=== PATIENT | female | born 1970 | race Caucasian/White ===

== ENCOUNTER 2021-01-14 18:59 | Outpatient (CLI) | payer MEDICAID, SELFPAY ==
[2021-01-14 20:15] LABS: Basophils % 0.5 %; Eosinophils % 0.5 %; Hematocrit 40.8 % (37.0-47.0); Hemoglobin 13.8 g/dL (11.5-15.3); Lymphocytes # 2.7 10^3/uL (0.8-4.8); Lymphocytes % 35.7 %; Mean Corpuscular HGB Conc 33.8 g/dL (30.0-36.0); Mean Corpuscular Hemoglobin 33.7 pg (28.0-34.0); Mean Corpuscular Volume 99.8 fl (81-99); Mean Platelet Volume 9.3 fL (7.4-10.4); Monocytes # 1.1 10^3/uL (0.2-0.9); Monocytes % 14.1 %; Neutrophils # 3.67 10^3/uL (1.8-7.7); Neutrophils % 49.1 %; Nucleated Red Blood Cells % 0 %; Platelet Count 373 10^3/cmm (130-400); Red Blood Count 4.09 10^6/uL (4.1-5.3); Red Cell Distribution Width 13.7 % (12.1-15.1); White Blood Count 7.5 10^3/uL (4.0-10.0)
[2021-01-14 20:52] LABS: Anion Gap 16.2 (5-19); Blood Urea Nitrogen 35 mg/dL (6-20); Calcium 9.8 mg/dL (8.5-10.5); Carbon Dioxide 33 mmol/L (22-29); Chloride 91 mmol/L (98-107); Glomerular Filtration Rate 58.9 mL/min (90-130); Glucose 66 mg/dL (65-115); Osmolality Calculated 290 mOsm/kg (285-295); Potassium 3.2 mmol/L (3.5-5.1); Sodium 137 mmol/L (136-145)
[2021-01-14 21:47] LABS: Erythrocyte Sedimentation Rate 19 mm/hr (0-15)
[2021-01-18 15:27] LABS: Cyclic Citrullinated Peptide <16 UNITS
== END 2021-01-14 19:00 | disposition home or self-care (01) ==
PROVIDERS: Visit Provider Internal Medicine Cardiovascular Disease
DX: M13.80 Other specified arthritis, unspecified site (principal)
CPT/HCPCS: 80048; 85025; 85651

== ENCOUNTER 2021-02-18 18:57 | Outpatient (CLI) | payer MEDICAID, SELFPAY ==
[2021-02-18 19:53] LABS: Alanine Aminotransferase 17 U/L (0-33); Albumin Level 4.5 g/dL (3.5-5.2); Alkaline Phosphatase 53 IU/L (35-105); Aspartate Amino Transferase 23 U/L (0-32); Blood Urea Nitrogen 26 mg/dL (6-20); Calcium 10.2 mg/dL (8.5-10.5); Carbon Dioxide 34 mmol/L (22-29); Globulin 3.3 g/dL (1.3-4.6); Glomerular Filtration Rate 52.8 mL/min (90-130); Glucose 94 mg/dL (65-115); Total Bilirubin 0.3 mg/dL (0.15-1.2); Total Protein 7.8 g/dL (6.6-8.7)
[2021-02-18 20:01] LABS: Chloride 92 mmol/L (98-107)
[2021-02-18 20:08] LABS: Osmolality Calculated 293 mOsm/kg (285-295); Sodium 139 mmol/L (136-145)
== END 2021-02-18 18:58 | disposition home or self-care (01) ==
LOC: LAB 18:57
PROVIDERS: Visit Provider General Practice
DX: E86.0 Dehydration (principal)
CPT/HCPCS: 80053; 86431

== ENCOUNTER 2021-04-22 17:12 | Outpatient (CLI) | payer MEDICAID, SELFPAY ==
[2021-04-22 17:47] LABS: Alanine Aminotransferase 21 U/L (0-33); Albumin Level 4.9 g/dL (3.5-5.2); Alkaline Phosphatase 50 IU/L (35-105); Anion Gap 22.3 (5-19); Aspartate Amino Transferase 24 U/L (0-32); Blood Urea Nitrogen 27 mg/dL (6-20); Calcium 9.7 mg/dL (8.5-10.5); Carbon Dioxide 32 mmol/L (22-29); Chloride 87 mmol/L (98-107); Globulin 2.3 g/dL (1.3-4.6); Glomerular Filtration Rate 47.6 mL/min (90-130); Glucose 85 mg/dL (65-115); Osmolality Calculated 290 mOsm/kg (285-295); Potassium 3.3 mmol/L (3.5-5.1); Sodium 138 mmol/L (136-145); Total Bilirubin 0.4 mg/dL (0.15-1.2); Total Protein 7.2 g/dL (6.6-8.7)
== END 2021-04-22 17:13 | disposition home or self-care (01) ==
LOC: LAB 17:12
PROVIDERS: Visit Provider General Practice
DX: M06.9 Rheumatoid arthritis, unspecified (principal)
CPT/HCPCS: 80053

== ENCOUNTER → 2021-07-30 09:58 | Outpatient (BNVA) | payer MEDICAID, SELFPAY | PROVIDERS: Visit Provider Family Medicine | DX: M06.9 Rheumatoid arthritis, unspecified (principal); Z13.6 Encounter for screening for cardiovascular disorders; K29.70 Gastritis, unspecified, without bleeding | CPT/HCPCS: 80053; 80061; 85025; 85651; 86038; 86140; 86200; 86431 ==

== ENCOUNTER 2021-08-27 | Outpatient (CLI) | payer MEDICAID, SELFPAY | END 2021-08-27 23:00 | disposition home or self-care (01) | LOC: RAD 02-01 22:27 | PROVIDERS: PCP Family Medicine; Visit Provider Family Medicine | DX: Z01.419 Encounter for gynecological examination (general) (routine) without abnormal findings (principal) | CPT/HCPCS: 87624 ==

== ENCOUNTER → 2021-09-03 08:31 | Outpatient (BNVA) | payer MEDICAID, SELFPAY | PROVIDERS: Visit Provider Internal Medicine | DX: M05.9 Rheumatoid arthritis with rheumatoid factor, unspecified (principal); N18.31 Chronic kidney disease, stage 3a; Z11.59 Encounter for screening for other viral diseases; Z11.1 Encounter for screening for respiratory tuberculosis; Z79.899 Other long term (current) drug therapy; F17.210 Nicotine dependence, cigarettes, uncomplicated | CPT/HCPCS: 36415; 73120; 73620; 80053; 83735; 86160; 86162; 86235; 86255; 86376; 86480; 86704; 86803; 87340; 99203; 99204 ==

== ENCOUNTER → 2021-09-15 14:01 | Outpatient (BNVA) | payer MEDICAID, SELFPAY | PROVIDERS: Visit Provider Internal Medicine | DX: M06.9 Rheumatoid arthritis, unspecified (principal); M19.049 Primary osteoarthritis, unspecified hand; Z79.899 Other long term (current) drug therapy; N18.31 Chronic kidney disease, stage 3a; E87.6 Hypokalemia; F17.210 Nicotine dependence, cigarettes, uncomplicated | CPT/HCPCS: 99214 ==

== ENCOUNTER → 2021-09-24 13:10 | Outpatient (BNVA) | payer MEDICAID, SELFPAY | PROVIDERS: Visit Provider Family Medicine | DX: R60.0 Localized edema (principal); Z86.19 Personal history of other infectious and parasitic diseases | CPT/HCPCS: 87491; 87591; 87661 ==

== ENCOUNTER 2021-10-29 14:00 | Outpatient (CLI) | payer MEDICAID, SELFPAY ==
--- NOTE | 2021-10-29 14:06 | MM_ITS ---
WS: [id number] BILATERAL SCREENING DIGITAL BREAST TOMOSYNTHESIS MAMMOGRAM WITH CAD HISTORY: screening mammogram COMPARISON: None available. Bilateral CC and MLO views with tomosynthesis and synthetic mammography submitted. Computer aided det ection analyzed. Breast composition: The breasts are heterogeneously dense, which may obscure small masses. No suspici ous masses, microcalcifications or architectural distortion. MM/[place] [id number] IMPRESSION: BI-RADS: 1-Negative FOLLOW UP: 1 Year Follow-up
== END 2021-10-29 14:01 | disposition home or self-care (01) ==
LOC: RAD 14:02
PROVIDERS: Visit Provider Family Medicine
DX: Z12.31 Encounter for screening mammogram for malignant neoplasm of breast (principal)
CPT/HCPCS: 77063; 77067

== ENCOUNTER → 2021-12-15 14:23 | Outpatient (BNVA) | payer MEDICAID, SELFPAY | PROVIDERS: PCP Family Medicine; Visit Provider Internal Medicine | DX: M06.9 Rheumatoid arthritis, unspecified (principal); N18.31 Chronic kidney disease, stage 3a | CPT/HCPCS: 36415; 80053; 85025; 85651; 86140; 99213; 99214 ==

== ENCOUNTER → 2022-02-18 13:25 | Outpatient (BNVA) | payer MEDICAID, SELFPAY | PROVIDERS: PCP Family Medicine; Visit Provider Family Medicine | DX: E87.6 Hypokalemia (principal) | CPT/HCPCS: 80053 ==

== ENCOUNTER 2022-04-04 15:13 | Inpatient (IN) | payer MEDICAID, SELFPAY ==
[2022-04-04] VITALS (14 sets, daily range): BP systolic 106–134; BP diastolic 70–79; PULSE 66–91; RESP 13–17; TEMP 36.8–36.9; O2SAT 95–100; BMI 16.2
[2022-04-04 15:54] LABS: Basophils % 0.5 %; Eosinophils % 0.1 %; Hematocrit 39.3 % (37.0-47.0); Hemoglobin 13.3 g/dL (11.5-15.3); Lymphocytes % 22.9 %; Mean Corpuscular HGB Conc 33.8 g/dL (30.0-36.0); Mean Corpuscular Hemoglobin 33.3 pg (28.0-34.0); Mean Corpuscular Volume 98.5 fl (81-99); Mean Platelet Volume 9.8 fL (7.4-10.4); Monocytes # 0.9 10^3/uL (0.2-0.9); Monocytes % 10.1 %; Neutrophils # 5.79 10^3/uL (1.8-7.7); Neutrophils % 66.1 %; Nucleated Red Blood Cells % 0 %; Platelet Count 287 10^3/cmm (130-400); Red Blood Count 3.99 10^6/uL (4.1-5.3); Red Cell Distribution Width 11.9 % (12.1-15.1); White Blood Count 8.8 10^3/uL (4.0-10.0)
[2022-04-04 16:29] LABS: Alanine Aminotransferase 49 U/L (0-33); Albumin Level 4.4 g/dL (3.5-5.2); Alkaline Phosphatase 59 U/L (35-105); Anion Gap 17.7 (5-19); Aspartate Amino Transferase 54 U/L (0-32); Blood Urea Nitrogen 38 mg/dL (6-20); Calcium 10.9 mg/dL (8.5-10.5); Carbon Dioxide 40 mmol/L (22-29); Chloride 81 mmol/L (98-107); Globulin 3.2 g/dL (1.3-4.6); Glomerular Filtration Rate 39.6 mL/min (90-130); Glucose 131 mg/dL (65-115); Osmolality Calculated 293 mOsm/kg (285-295); Sodium 136 mmol/L (136-145); Thyroid Stimulating Hormone 0.57 uIU/mL (0.27-4.20); Total Bilirubin 0.4 mg/dL (0.15-1.2); Total Protein 7.6 g/dL (6.6-8.7)
[2022-04-04 16:32] LABS: Potassium 2.7 mmol/L (3.5-5.1)
--- NOTE | 2022-04-04 16:34 | ED_ITS ---
HPI - Seizure General: Chief Complaint: Seizure Stated Complaint: weakness, dizzy Time Seen by Provider: 04/04/22 16:34 History of Present Illness: HPI Narrative: Ms. Bermeo is a 52-year-old lady with history of CKD, tobaccoism, rheumatoid arthritis on chronic steroids and hydroxychloroquine presenting to the emergency department due to syncopal episode with possible seizure. No reported seizure history. She reports sitting down on a couch when she had a sudden abnormal feeling followed by syncope. She did wake up with urinary incontinence and feeling mildly confused. Currently feels back to baseline. Denies other significant changes or known precipitating events. Intensity symptoms when present was severe. Course is improved. No other specific changes in health, exacerbating, or alleviating factors identified. Onset (ago): minute(s) Description of Episode: loss of consciousness, bladder incontinence and post- event confusion Witnessed: Yes - by Bystander Trauma: No Seizure History: No Place: Home Possible Precipitating Event: none Associated symptoms: Reports no associated symptoms Review of Systems General: Reports: 10 or more systems reviewed and unremarkable except in HPI and below PFSH ED PFSH: Medical History Elevated troponin History of trichomonal vaginitis Hypokalemia Rheumatoid arthritis Seizure-like activity Stage 3a chronic kidney disease (CKD) Syncopal episodes Surgical History No pertinent past surgical history Family History Mother Cancer, Onset Age: 75 Grandmother Dementia Other CAD (coronary artery disease) Diabetes Hyperlipidemia Hypertension Rheumatoid arthritis Denies family history of Lupus Clotting disorder Psychiatric illness Chronic kidney disease (CKD) Suicide Anesthesia complication Bleeding disorder Family history of premature coronary artery disease Lung disease Stroke Social History Smoking and tobacco status: current every day smoker cigarettes Packs smoked per day: 0.5 Quit status (tobacco): considering quitting Alcohol intake: current Alcohol intake frequency: few times a week Alcohol type: beer and wine Lives independently: Yes Household members: none Marital status: Single History of recent travel: No Physical Exam Const: COMMON NORMALS: patient oriented x3 and alert GENERAL APPEARANCE: cooperative and well developed HENMT: COMMON NORMALS: normocephalic and atraumatic HEAD & SCALP: normocep halic and atraumatic THROAT: posterior oropharynx normal Eye: COMMON NORMALS: conjunctivae normal CONJUNCTIVA: Yes conjunctivae normal SCLERA: sclerae normal Neck/C-Spine: COMMON NORMALS: supple GENERAL: Yes trachea midline Resp: COMMON NORMALS: normal respiratory effort and clear to auscultation bilaterally EFFORT & INSPECTION: Yes able to speak in complete sentences AUSCULTATION: clear to auscultation bilaterally Cardio: COMMON NORMALS: regular rate and regular rhythm RATE: regular rate RHYTHM: regular rhythm GI: COMMON NORMALS: Soft to palpation PALPATION: Yes Soft to palpation and No Tenderness to palpation present (GI) Extremity: GENERAL: Yes normal exam except as noted and No edema Neuro: COMMON NORMALS: patient oriented x3, CN's II-XII intact bilaterally, moves all extremities, no focal motor deficits, no sensory deficits noted and gait normal SENSORIUM/ORIENTATION: Yes alert and No Orientation impaired Psych: COMMON NORMALS: mental status grossly normal and Normal thought process present THOUGHT PROCESS: Normal thought process present Course Vital Signs: Vital signs: Vital Signs Temperature 97.6 F 04/06/22 10:38 Pulse Rate 62 04/06/22 10:38 Respiratory Rate 16 04/06/22 10:38 Blood Pressure 113/73 04/06/22 10:38 Pulse Oximetry 99 04/06/22 10:38 Oxygen Delivery Me thod 04/06/22 08:00 MDM - Seizure MDM Narrative Medical decision making narrative: 52-year-old female presenting for weakness and seizure-like episode associated with position change with no history of seizure reported. Exam as above with no focal neurologic deficits appreciated. EKG shows sinus rhythm with nonspecific ST segment abnormalities. No STEMI. Hematologic panel with normal hemoglobin, white blood cell count, and platelet count. Metabolic panel with significant hypokalemia and some evidence of dehydration with elevated creatinine. Transaminitis of uncertain etiology. Intermediate range 2-hour troponin. No urinary tract infection. Chest x-ray with no lobar consolidation or pneumothorax. CT head negative for acute intracranial pathology. During ED course patient treated with potassium replenishment and IV fluids. The exact etiology of patient's symptoms is unclear, certainly electrolyte derangement may be contributing as well as dehydration though given intermediate range 2-hour troponin delta I believe that further inpatient testing to evaluate for other causes such as cardiogenic causes seems warranted. The results of ED evaluation were discussed with the patient including plan for admission due to requirement for level of care not available if discharged to prevent significant worsening/deterioration. Patient agreeable with plan. Discussed with hospitalist service who was agreeable to admit patient. Medical Records Attestation: I reviewed the patient's medical records. Lab Data Attestation: I reviewed the patient's lab results. 04/04/22 15:25 04/04/22 15:25 Labs: Radiology Impressions Chest X-Ray 04/04/22 17:41 IMPRESSION: No acute findings. Head CT 04/04/22 17:41 IMPRESSION: No acute intracranial abnormality. Laboratory Results WBC 5.7 10^3/uL (4.0-10.0) 04/05/22 04:20 RBC 3.22 10^6/uL (4.1-5.3) L 04/05/22 04:20 Hgb 10.8 g/dL (11.5-15.3) L 04/05/22 04:20 Hct 32.8 % (37.0-47.0) L 04/05/22 04:20 MCV 101.9 fl (81-99) H 04/05/22 04:20 MCH 33.5 pg (28.0-34.0) 04/05/22 04:20 MCHC 32.9 g/dL (30.0-36.0) 04/05/22 04:20 RDW 12.1 % (12.1-15.1) 04/05/22 04:20 Plt Count 225 10^3/cmm (130-400) 04/05/22 04:20 MPV 10.2 fL (7.4-10.4) 04/05/22 04:20 Neut % (Auto) 40.2 % 04/05/22 04:20 Lymph % (Auto) 44.5 % 04/05/22 04:20 [place] % (Auto) 13.7 % 04/05/22 04:20 Eos % (Auto) 0.9 % 04/05/22 04:20 Baso % (Auto) 0.5 % 04/05/22 04:20 Neut # (Auto) 2.29 10^3/uL (1.8-7.7) 04/05/22 04:20 Lymph # (Auto) 2.5 10^3/uL (0.8-4.8) 04/05/22 04:20 [place] # (Auto) 0.8 10^3/uL (0.2-0.9) 04/05/22 04:20 Eos # (Auto) 0.1 10^3/uL (0.0-0.8) 04/05/22 04:20 Baso # (Auto) 0.0 10^3/uL (0.0-0.1) 04/05/22 04:20 Nucleated RBC % (auto) 0 % 04/05/22 04:20 Nucleated RBCs # 0.0 /100WBC 04/05/22 04:20 Sodium 141 mmol/L (136-145) 04/05/22 04:20 Potassium 3.4 mmol/L (3.5-5.1) L 04/05/22 04:20 Chloride 98 mmol/L (98-107) 04/05/22 04:20 Carbon Dioxide 33 mmol/L (22-29) H 04/05/22 04:20 Anion Gap 13.4 (5-19) 04/05/22 04:20 BUN 33 mg/dL (6-20) H 04/05/22 04:20 Creatinine 1.4 mg/dL (0.5-0.9) H 04/05/22 04:20 GFR Calculation 39.6 mL/min (90-130) L 04/05/22 04:20 Glucose 92 mg/dL (65-115) 04/05/22 04:20 Calculated Osmolality 299 mOsm/kg (285-295) H 04/05/22 04:20 Calcium 9.1 mg/dL (8.5-10.5) 04/05/22 04:20 Magnesium 2.0 mg/dL (1.7-2.3) 04/05/22 04:20 Total Bilirubin 0.4 mg/dL (0.15-1.2) 04/04/22 15:25 AST 54 U/L (0-32) H 04/04/22 15:25 ALT 49 U/L (0-33) H 04/04/22 15:25 Alkaline Phosphatase 59 U/L (35-105) 04/04/22 15:25 Troponin T Baseline 24 ng/L (0-10) H 04/04/22 16:44 Troponin T 120 Minute 29.91 ng/L (0-10) H 04/04/22 19:08 Delta Troponin T 5.91 ABS# (0-10) 04/04/22 19:08 Troponin T Hi Sens 6Hr 30.86 ng/L (0-10) H 04/04/22 23:15 Troponin T Hi Sens 6Hr Delta 6.86 ng/L (0-12) 04/04/22 23:15 C-Reactive Protein 3.0 mg/L (0.0-4.9) 04/05/22 04:20 Total Protein 7.6 g/dL (6.6-8.7) 04/04/22 15:25 Albumin 4.4 g/dL (3.5-5.2) 04/04/22 15:25 Globulin 3.2 g/dL (1.3-4.6) 04/04/22 15:25 25-OH Vitamin D Total 97 ng/mL (30-100) 04/04/22 23:15 TSH 0.57 uIU/mL (0.27-4.20) 04/04/22 15:25 Prolactin 36.41 ng/mL (4.8-23.3) H 04/04/22 19:08 PTH Intact 39.7 pg/mL (15-65) 04/04/22 15:25 Calcium (PTH Intact) 11.0 mg/dL (8.5-10.5) H 04/04/22 15:25 Urine Color Yellow (Yellow) 04/04/22 19:05 Urine Appearance Clear (CLEAR) 04/04/22 19:05 Urine pH 8 (5-7) H 04/04/22 19:05 Ur Specific [place] 1.010 (1.005-1.030) 04/04/22 19:05 Urine Protein Neg (Negative) 04/04/22 19:05 Urine Glucose (UA) Norm (Normal) 04/04/22 19:05 Urine Ketones Negative (Negative) 04/04/22 19:05 Urine Blood Neg (Negative) 04/04/22 19:05 Urine Nitrate Negative (Negative) 04/04/22 19:05 Urine Bilirubin Neg (Negative) 04/04/22 19:05 Prot Sulfosalicylic Acd Negative (Negative) 04/04/22 19:05 Urine Urobilinogen Norm mg/dL (Negative) 04/04/22 19:05 Ur Leukocyte Esterase Negative (Negative) 04/04/22 19:05 Ur Random Sodium 86 mmol/L 04/04/22 19:05 Ur Random Potassium 60 mmol/L 04/04/22 19:05 Ur Random Chloride 15 mmol/L 04/04/22 19:05 Ur Random Calcium 4.8 mg/dL 04/04/22 19:05 Urine Opiates Screen Negative ng/mL (Negative) 04/04/22 19:05 Ur Barbiturates Screen Negative ng/mL (Negative) 04/04/22 19:05 Ur Phencyclidine Scrn Negative ng/mL (Negative) 04/04/22 19:05 Ur Amphetamines Screen Negative ng/mL (Negative) 04/04/22 19:05 U Benzodiazepines Scrn Positive ng/mL (Negative) H 04/04/22 19:05 Urine Cocaine Screen Negative ng/mL (Negative) 04/04/22 19:05 U Marijuana (THC) Screen Negative ng/mL (Negative) 04/04/22 19:05 Coronavirus 229E (PCR) Not detected (NOT DETECT) 04/04/22 17:29 SARS-CoV-2 (PCR) Not detected (NOT DETECT) 04/04/22 17:29 Discharge Plan Discharge Patient Disposition: Placed in Observation Admit Provider: Fareed Martin Clinical Impression: Syncopal episodes, Hypokalemia, Elevated troponin Coding Level of Care Code ED Drapery Inspector for Andrea Rosenberg
[2022-04-04] MEDS: potassium chloride ER 20 mEq Tablet 40 MEQ PO (16:44)
--- NOTE | 2022-04-04 16:50 | ECG_ITS ---
[facility] Test Date: 2022-04-04 Pat Name: Annalisa Bermeo Department: Room: Gender: Female Director Of Medical Staff Services: : 1970 Requested By: Henok Sierra Order Number: [id number] Abdelrahman MD: Betina Ingram M.D. Measurements Intervals [place] Rate: 72 P: 78 IN: 148 QRS: 30 QRSD: 82 T: 59 QT: 388 QTc: 425 Interpretive Statements SINUS RHYTHM POSSIBLE LEFT ATRIAL ENLARGEMENT [-0.1mV P-WAVE IN V1/V2] SEPTAL MYOCARDIAL INFARCTION , OF INDETERMINATE AGE [40+ ms Q WAVE IN V1/V2] No previous ECG available for comparison Electronically Signed On 04-04-2022 17:52:44 MILL MANAGER by Betina Ingram M.D. [id number]
--- NOTE | 2022-04-04 16:50 | PC.NURSE ---
pt reports she has been vomiting and having diarrhea for last 2 weeks. reports yesterday and today had an occurrence where her ears started ringing and then she woke up on the ground. reports loss of control of bladder during episode. respirations even and unlabored, answering questions appropriately. lung sounds clear bilat. bowel sounds present. skin pink/warm/dry,
[2022-04-04 17:06] LABS: Magnesium 2.1 mg/dL (1.7-2.3); Troponin(5th) Baseline 24 ng/L (0-10)
[2022-04-04] MEDS: lidocaine 1% 5 ML in potassium chloride premix 100 ML 25 ML IV (17:17)
[2022-04-04] MEDS: sodium chloride 0.9% 1,000 ML 500 ML IV (17:18)
--- NOTE | 2022-04-04 17:41 | CTR_ITS ---
PROCEDURE INFORMATION: Exam: CT Head Without Contrast Exam date and time: 04/04/2022 5:59 PM Age: 52 years old Clinical indication: Syncope and collapse; Additional info: Seizure/syncope TECHNIQUE: Imaging protocol: Computed tomography of the head without contrast. Radiation optimization: All CT scans at this facility use at least one of these dose optimization techniques: automated exposure control; mA and/or kV adjustment per patient size (includes targeted exams where dose is matched to clinical indication); or iterative reconstruction. COMPARISON: No relevant prior studies available. RADIATION DOSE METRICS: Total DLP (mGy-cm): 971.38 FINDINGS: Brain: Normal. No hemorrhage. Unremarkable white matter. No mass effect. Cerebral ventricles: No ventriculomegaly. Paranasal sinuses: Visualized sinuses are unremarkable. No fluid levels. Mastoid air cells: Visualized mastoid air cells are well aerated. Bones/joints: Unremarkable. No acute fracture. Soft tissues: Unremarkable. CT/CT head wo con* [id number] IMPRESSION: No acute intracranial abnormality.
--- NOTE | 2022-04-04 17:41 | XRR_ITS ---
PROCEDURE INFORMATION: Exam: XR Chest Exam date and time: 04/04/2022 6:47 PM Age: 52 years old Clinical indication: Other: Syncope; Additional info: Seizure/syncope TECHNIQUE: Imaging protocol: Radiologic exam of the chest. Views: 1 view. COMPARISON: No relevant prior studies available. FINDINGS: Lungs: Calcified granuloma in the right lung apex. The lungs are otherwise clear. Pleural spaces: Unremarkable. No pleural effusion. No pneumothorax. Heart/Mediastinum: Unremarkable. No cardiomegaly. Bones/joints: Unremarkable. XR/XR chest 1V portable [id number] IMPRESSION: No acute findings.
--- NOTE | 2022-04-04 18:34 | ECG_ITS ---
[facility] Test Date: 2022-04-04 Pat Name: Annalisa Bermeo Department: Room: Gender: Female Stone Mason: : 1970 Requested By: Henok Sierra Order Number: [id number] Abdelrahman MD: Betina Ingram M.D. Measurements Intervals [place] Rate: 66 P: 71 MO: 143 QRS: 24 QRSD: 89 T: 58 QT: 405 QTc: 426 Interpretive Statements SINUS RHYTHM NONSPECIFIC T-WAVE ABNORMALITY Compared to ECG 04/04/2022 16:50:37 T-wave abnormality now present Myocardial infarct finding no longer present Electronically Signed On 04-05-2022 0:15:30 HOME DELIVERY DRIVER by Betina Ingram M.D. [id number]
--- NOTE | 2022-04-04 19:03 | PC.NURSE ---
report given to LAKHWINDER Cody to assume care
[2022-04-04 19:28] LABS: Add Urine Microscopic? NO; Charge for UA Resulting for Rev
[2022-04-04 19:42] LABS: Urine Appearance Clear (CLEAR); Urine Color Yellow (Yellow); pH Urine 8 (5-7)
[2022-04-04 19:43] LABS: Bilirubin Urine Neg (Negative); Blood Urine Neg (Negative); Glucose Urine UA Norm (Normal); Ketones Urine Negative (Negative); Leukocyte Esterase Urine Negative (Negative); Nitrate Urine Negative (Negative); Protein Urine Neg (Negative); Sulfosalicylic Acid Urine Negative (Negative); Urobilinogen Urine Norm (Negative)
[2022-04-04 19:45] LABS: Adenovirus Not Detected (NOT DETECT); Chlamydia Pneumoniae Not Detected (NOT DETECT); Coronavirus 229E,HKU1,NL63,OC4 Not Detected (NOT DETECT); Human Metapneumovirus Not Detected (NOT DETECT); Human Rhinovirus/Enterovirus Not Detected (NOT DETECT); Influenza A Not Detected (NOT DETECT); Influenza A H1 Not Detected (NOT DETECT); Influenza A H1-2009 Not Detected (NOT DETECT); Influenza A H3 Not Detected (NOT DETECT); Influenza B Not Detected (NOT DETECT); Mycoplasma Pneumoniae Not Detected (NOT DETECT); Parainfluenza Virus Type 1 Not Detected (NOT DETECT); Parainfluenza Virus Type 2 Not Detected (NOT DETECT); Parainfluenza Virus Type 3 Not Detected (NOT DETECT); Parainfluenza Virus Type 4 Not Detected (NOT DETECT); Respiratory Syncytial Virus A Not Detected (NOT DETECT); Respiratory Syncytial Virus B Not Detected (NOT DETECT); SARS-COV-2 Not Detected (NOT DETECT)
[2022-04-04 19:45] LABS: Troponin 5 2HR 29.91 ng/L (0-10)
[2022-04-04 19:48] LABS: Troponin 5 2HR Delta 5.91 ABS# (0-10)
--- NOTE | 2022-04-04 20:02 | P.HP_ITS ---
Providers/Chief Complaint Primary Care Provider: Trupti Pierre DO Chief Complaint: weakness, dizzy History of Present Illness Annalisa Bermeo is a 52 year old female with history of rheumatoid arthritis, presented today with chief complaint of 2 seizure-like activities. Patient is stating that her first episode of seizure-like activity happened at 8:45 PM 04/03 when she was sitting on a couch watching [employer] movie when all of a sudden she started become dizzy, hunched over to her right side, her heart rate was high that she could feel, she noticed ringing sensation in her ear and she felt warm, she kept hearing [employer] songs during this episode, when she woke up she was confused, she also noticed that she soiled herself with urine on the couch. Same episode occurred on 04/04 around 2 PM and at this point she decided to come to the hospital for further evaluation. Patient is stating that when EMS examined her her right hand was clenched which improved spontaneously. She is endorsing history of diarrhea, she has been experiencing viral illness which has resolved to most part but diarrhea took almost a week to resolve, on top of that she takes Lasix for her chronic kidney disease related swelling. He has not noticed any fever except 1 episode at the initial stage of her viral illness. She does smoke on daily basis. Denies alcohol or marijuana. Endorses history of cardiomyopathy, her twin sister had ablation, she is not sure about indication but she is stating that she has family history of cardiomy opathy Father of similar disease In the ER her doctor troponin is 5 EKG is unremarkable I requested echo, CT head unremarkable I have requested prolactin, she has been replenished for potassium She is awake and alert nonfocal neuro exam Review of Systems Const: Denies: fever(s) Eyes: Reports: blurry vision; Denies: change in vision ENMT: Denies: throat pain Card: Reports: chest pain and edema Resp: Denies: dyspnea GI: Reports: diarrhea : Denies: flank pain Musc: Reports: back pain Skin/Breast: Denies: rash Neuro: Denies: headache(s) or weakness in extremities Psych: Reports: anxiety Endo: Denies: polyuria [place]/Lymph: Denies: easy bruising All/Imm: Denies: urticaria Medications/Allergies Home Medications Medication Instructions Recorded Confirmed Last Taken Type acetaminophen 650 mg 650 mg PO Q8H 07/30/21 04/04/22 04/04/22 History tablet,extended release (Tylenol Arthritis Pain) folic acid 400 mcg tablet 0.4 mg PO DAILY 09/03/21 04/04/22 04/04/22 History milk thistle 150 mg capsule 150 mg PO DAILY 09/03/21 04/04/22 04/04/22 History hydroxychloroquine 200 mg tablet 200 mg PO BID #60 tabs 01/18/22 04/04/22 04/04/22 Rx terbinafine HCl 250 mg tablet 250 mg PO DAILY 60 days #60 tabs 02/28/22 04/04/22 04/04/22 Rx carboxymethylcellulose sodium 0.5 2 drp ophthalmic (eye) BID PRN dry 03/21/22 04/04/22 Unknown Rx % eye drops (Refresh Tears) eye(s) #15 mL fluoxetine 40 mg capsule 40 mg PO DAILY #90 caps 03/21/22 04/04/22 04/04/22 Rx furosemide 20 mg tablet See Rx Instructions .Route 03/21/22 04/04/22 04/04/22 Rx .COMPLEX #60 tabs omeprazole 20 mg capsule,delayed 20 mg PO DAILY #30 caps 03/21/22 04/04/22 04/04/22 Rx release biotin 5,000 mcg sublingual tablet 5,000 mcg sublingual DAILY 04/04/22 04/04/22 04/04/22 History bisacodyl 5 mg tablet 5 mg PO DAILY PRN Constipation 04/04/22 04/04/22 Unknown History potassium chloride 10 mEq 10 meq PO DAILY 04/04/22 04/04/22 04/04/22 History tablet,extended release prednisone 5 mg tablet 5 mg PO DAILY PRN Inflammation 04/04/22 04/04/22 04/04/22 History Allergies Allergy/AdvReac Type Severity Reaction Status Date / Time No Known Allergies Allergy Verified 04/04/22 17:20 PFSH Acute PFSH: Medical History History of trichomonal vaginitis Rheumatoid arthritis Surgical History No pertinent past surgical history Family History Mother Cancer, Onset Age: 75 Grandmother Dementia Other CAD (coronary artery disease) Diabetes Hyperlipidemia Hypertension Rheumatoid arthritis Denies family history of Lupus Clotting disorder Psychiatric illness Chronic kidney disease (CKD) Suicide Anesthesia complication Bleeding disorder Family history of premature coronary artery disease Lung disease Stroke Social History Smoking and tobacco status: current every day smoker cigarettes Packs smoked per day: 0.5 Quit status (tobacco): considering quitting Alcohol intake: current Alcohol intake frequency: few times a week Alcohol type: beer and wine Lives independently: Yes Household members: none Marital status: Single History of recent travel: No Vitals/I&O/Wt Last Vital Signs Temp 98.3 F 04/04/22 15:40 Pulse 70 04/04/22 18:55 Resp 17 04/04/22 17:28 BP 118/70 04/04/22 19:00 Pulse Ox 100 04/04/22 18:55 O2 Del Method 04/04/22 17:28 Weight last 48 hrs Weight 47.174 kg Physical Exam Narrative: NIH 0 Patient is awake and alert Clinically looks dehydrated Patient has chronic facial asymmetry, left-sided facial droop Awake and alert Nonfocal neuro exam Currently on room air S1, S2 Abdomen soft No signs of edema Clinically looks dehydrated No audible stridor or wheezing Pleasant and cooperative during my evaluation Appears stated age Data 04/04/22 15:25 04/04/22 15:25 A&P Assessment and plan (1) Seizure-like activity: (2) Syncopal episodes: (3) Hypokalemia: (4) Elevated troponin: (5) Stage 3a chronic kidney disease (CKD): Plan Seizure like activity Patient is stating that she had 1 episode of seizure likely 20 years ago she has never taken any antiepileptics She has hypokalemia Right hand clenching could be related to panic attack, hyperventilation, her calcium is slightly high at 10.9 I am anticipating provement with IV fluid hydration check PTH and vitamin D CT head unremarkable NIH 0 Will request carotid Doppler and echo No significant delta troponin EKG unremarkable No active chest pain Depending on echo report further decision will be made whether she will need cardiac evaluation considering family history of cardiomyopathy Patient is full code I will keep her on cardiac diet COVID-negative Hypokalemia most likely is related to dehydration related to diarrhea potassium related check magnesium and phosphorus Hold Lasix Full code Cardiac DVT prophylaxis Heparin Acute on chronic kidney disease likely related dehydration improvement anticipated with IV fluid hydration Hold lisinopril Is an active smoker Requested drug screen Attestations Medical Necessity Statement*: Anticipating discharge within 48 hours Time Spent in Patient Care: 40 Coding Level of Care Code Acute Clarity Developer for Chg Fwd Diagnoses Seizure-like activity R56.9 Syncopal episodes R55 Hypokalemia E87.6 Elevated troponin R77.8 Stage 3a chronic kidney disease (CKD) N18.31
--- NOTE | 2022-04-04 20:13 | USCV_ITS ---
Annalisa Bermeo Age: 52 Gender: F : 1970 Exam Date: 04/04/2022 20:34 Ordering Phys: Fareed Martin MD Technologist: WENDY Exam Location: [facility] [place] Indication: Syncope BP: 118 / 70 HR: 68 Rhythm: Sinus Technical Quality: Adequate MEASUREMENTS (Male / Female) Normal Values 2D ECHO LV Diastolic Diameter PLAX 4.4 cm 4.2 - 5.9 / 3.9 - 5.3 cm LV Systolic Diameter PLAX 2.8 cm IVS Diastolic Thickness 0.6 cm 0.6 - 1.0 / 0.6 - 0.9 cm IVS Systolic Thickness 1.3 cm LVPW Diastolic Thickness 0.9 cm 0.6 - 1.0 / 0.6 - 0.9 cm LVPW Systolic Thickness 1.3 cm LVOT Diameter 2.0 cm LV Ejection Fraction 2D Teich 67.7 % LV Ejection Fraction MOD 2C 73.2 % LV Ejection Fraction 2C AL 73.5 % LA Diameter 2.8 cm LA Width 3.8 cm LA Height 3.9 cm RA Width 3.5 cm RA Height 3.6 cm Aorta at Sinotubular Diameter 2.7 cm IVC Diameter 1.4 cm M-MODE Aortic Annulus Diameter 2.5 cm LA Ao Ratio MM 1.0 MV E Point Septal Separation 0.3 cm DOPPLER AV Peak Velocity 108.0 cm/s LVOT Peak Velocity 89.0 cm/s AV Area Cont Eq vti 2.5 cm squared AV Area Cont Eq pk 2.5 cm squared MV Area PHT 5.0 cm squared Mitral E to A Ratio 1.2 MV E' Velocity 46.0 cm/s Mitral E to MV E' Ratio 7.3 Mitral E to LV E' Lateral Ratio 7.0 Mitral E to LV E' Septal Ratio 7.6 TV Peak E Velocity 50.0 cm/s PV Peak Velocity 74.0 cm/s RV Acceleration Time 0.2 s RV Ejection Time 0.4 s RV AcT/ET 0.4 FINDINGS Left Ventricle Normal left ventricular size, systolic function and wall thickness, with no regional wall motion abnormalities. Left ventricular ejection fraction is estimated at 65 %. Normal diastolic function. Right Ventricle Normal right ventricular size and systolic function. RVSP could not be calculated due to incomplete tricuspid regurgitation velocity profile. Right Atrium Normal right atrial size. Left Atrium Normal left atrial size. Mitral Valve Structurally normal mitral valve. No mitral valve stenosis. Trace mitral valve regurgitation. Aortic Valve Structurally normal trileaflet aortic valve. No aortic valve stenosis. No aortic valve regurgitation. Tricuspid Valve Structurally normal tricuspid valve. No tricuspid valve stenosis. Trace tricuspid valve regurgitation. Pulmonic Valve Pulmonic valve not well visualized. No pulmonary valve stenosis. No significant pulmonary valve regurgitation. Pericardium No pericardial effusion. Aorta Normal size aortic root and proximal ascending aorta. IVC Normal IVC dimension with >50% respiratory change of the inferior vena cava. CONCLUSIONS 1. Normal left ventricular size, systolic function and wall thickness, with no regional wall motion abnormalities. Left ventricular ejection fraction is estimated at 65 %. Normal diastolic function. 2. Normal right ventricular size and systolic function. 3. No prior similar studies to compare. Cindy High MD (Electronically Signed) Final Date: 05 April 2022 13:09 S
[2022-04-04 21:25] LABS: Amphetamines Screen Urine Negative (Negative); Barbiturates Screen Urine Negative (Negative); Benzodiazepines Screen Urine Positive (Negative); Cocaine Screen Urine Negative (Negative); Opiate Screen Urine Negative (Negative); PCP Screen Urine Negative (Negative); THC Screen Urine Negative (Negative)
[2022-04-04 21:32] LABS: Prolactin 36.41 ng/mL (4.8-23.3)
[2022-04-04 21:51] LABS: Calcium Urine Random 4.8 mg/dL
[2022-04-04 21:53] LABS: Potassium, Radom Urine 60 mmol/L; Urine Random Sodium 86 mmol/L
[2022-04-04 21:58] LABS: Urine Random Chloride 15 mmol/L
--- NOTE | 2022-04-04 23:03 | ECG_ITS ---
[facility] Test Date: 2022-04-04 Pat Name: Annalisa Bermeo Department: Room: 256 Gender: Female Survey Supervisor: : 1970 Requested By: Henok Sierra Order Number: [id number] Abdelrahman MD: Cindy High M.D. Measurements Intervals Bono Rate: 77 P: 75 PA: 140 QRS: 43 QRSD: 86 T: 60 QT: 405 QTc: 460 Interpretive Statements SINUS RHYTHM NONSPECIFIC T-WAVE ABNORMALITY Compared to ECG 04/04/2022 18:18:26 No significant changes Electronically Signed On 04-05-2022 18:14:04 FINANCIAL SERVICE REPRESENTATIVE by Cindy High M.D. [id number]
[2022-04-04] MEDS: hydroxychloroquine 200 mg Tablet PO (23:06)
[2022-04-04] MEDS: sodium chlor 0.9% + KCl 40 mEq 40 MEQ/1,000 ML BAG 75 MEQ IV (23:06)
[2022-04-04] MEDS: lidocaine 1% 5 ML in potassium chloride premix 100 ML 50 ML IV (23:06)
[2022-04-04] MEDS: heparin 5,000 unit/mL INJ 1 mL 5000 UNIT SUBCUT (23:08)
[2022-04-04 23:45] LABS: Troponin 5 6HR 30.86 ng/L (0-10)
[2022-04-04 23:48] LABS: Troponin 5 6HR Delta 6.86 ng/L (0-12)
[2022-04-05] VITALS (8 sets, daily range): BP systolic 94–118; BP diastolic 51–78; PULSE 57–104; RESP 16–20; TEMP 36.4–36.8; O2SAT 93–98
[2022-04-05 00:22] LABS: Parathyroid Hormone 39.7 pg/mL (15-65)
[2022-04-05 00:30] LABS: 25 Hydroxy Vitamin D 97 ng/mL (30-100)
[2022-04-05 05:37] LABS: Basophils % 0.5 %; Eosinophils # 0.1 10^3/uL (0.0-0.8); Eosinophils % 0.9 %; Hematocrit 32.8 % (37.0-47.0); Hemoglobin 10.8 g/dL (11.5-15.3); Lymphocytes # 2.5 10^3/uL (0.8-4.8); Lymphocytes % 44.5 %; Mean Corpuscular HGB Conc 32.9 g/dL (30.0-36.0); Mean Corpuscular Hemoglobin 33.5 pg (28.0-34.0); Mean Corpuscular Volume 101.9 fl (81-99); Mean Platelet Volume 10.2 fL (7.4-10.4); Monocytes # 0.8 10^3/uL (0.2-0.9); Monocytes % 13.7 %; Neutrophils # 2.29 10^3/uL (1.8-7.7); Neutrophils % 40.2 %; Nucleated Red Blood Cells % 0 %; Platelet Count 225 10^3/cmm (130-400); Red Blood Count 3.22 10^6/uL (4.1-5.3); Red Cell Distribution Width 12.1 % (12.1-15.1); White Blood Count 5.7 10^3/uL (4.0-10.0)
[2022-04-05 06:17] LABS: Anion Gap 13.4 (5-19); Blood Urea Nitrogen 33 mg/dL (6-20); Calcium 9.1 mg/dL (8.5-10.5); Carbon Dioxide 33 mmol/L (22-29); Chloride 98 mmol/L (98-107); Glomerular Filtration Rate 39.6 mL/min (90-130); Glucose 92 mg/dL (65-115); Osmolality Calculated 299 mOsm/kg (285-295); Potassium 3.4 mmol/L (3.5-5.1); Sodium 141 mmol/L (136-145)
[2022-04-05] MEDS: potassium chloride ER 20 mEq Tablet 40 MEQ PO (08:30)
[2022-04-05] MEDS: heparin 5,000 unit/mL INJ 1 mL 5000 UNIT SUBCUT ×2 (08:30→20:46)
[2022-04-05] MEDS: pantoprazole DR 40 mg Tablet PO (08:30)
[2022-04-05] MEDS: hydroxychloroquine 200 mg Tablet PO ×2 (08:30→16:58)
[2022-04-05] MEDS: predniSONE 10 mg Tablet PO (10:39)
--- NOTE | 2022-04-05 12:59 | PM.PN ---
Subjective Subjective: Patient was seen and examined this morning, had no seizure-like activity since being in the hospital. Will at least monitor her for 24 hours to make sure she has no documented seizure. Medications: Medication Review Details: Generic Name Dose Route Start Last Admin Trade Name Segun PRN Reason Stop Dose Admin Heparin Sodium (Po rcine) 5,000 unit 04/04/22 21:31 04/05/22 08:30 Heparin 5,000 Un it/Ml Inj 1 Ml SUBCUT 5,000 unit Q12H SKYLER Administration Hydroxychloroquine Sulfate 200 mg 04/04/22 22:12 04/05/22 08:30 Hydroxychloroqui ne 200 Mg Tablet PO 200 mg BID SKYLER Administration Potassium Chloride /Sodium Chloride 40 meq in 1,000 m ls @ 75 mls/hr 04/04/22 21:31 04/04/22 23:06 Sodium Chlor 0.9 % + Kcl 40 Meq IV 75 mls/hr .[id number] SKYLER Administration Pantoprazole Sodiu m 40 mg 04/05/22 09:00 04/05/22 08:[address] 40 Mg Tablet PO 40 mg DAILY SKYLER Administration Potassium Chloride 40 meq 04/05/22 09:00 04/05/22 08:30 Potassium Chlori de Er 20 Meq Table t PO 40 meq DAILY SKYLER Administration Prednisone 10 mg 04/05/22 09:40 04/05/22 10:39 Prednisone 10 Mg Tablet PO 10 mg DAILY SKYLER Administration Vitals/I&O/Wt Last Vital Signs Temp 98.2 F 04/05/22 12:00 Pulse 65 04/05/22 12:00 Resp 17 04/05/22 12:00 BP 116/73 04/05/22 12:00 Pulse Ox 98 04/05/22 12:00 O2 Del Method 04/05/22 10:17 04/04/22 04/05/22 04/05/22 22:59 06:59 14:59 Intake Total 1345 / 1345 345 / 1690 150 / 150 Output Total 200 / 200 Balance 1345 / 1345 145 / 1490 150 / 150 Weight last 48 hrs Weight 49.952 kg Weight 47.174 kg Physical Exam Resp: COMMON NORMALS: clear to auscultation bilaterally AUSCULTATION: clear to auscultation bilaterally Cardio: COMMON NORMALS: regular rate, regular rhythm, S1 normal heart sound present, S2 normal heart sound present, No gallops present (Cardio), No murmurs present (Cardio), No rub (Cardio) and Peripheral pulses 2+ throughout RATE: regular rate RHYTHM: regular rhythm HEART SOUNDS: S1 normal heart sound present and S2 normal heart sound present PERIPHERAL PULSES: Peripheral pulses 2+ throughout GI: COMMON NORMALS: Normal to inspection, nondistended, normoactive bowel sounds present, Soft to palpation, non-tender, No hepatosplenomegaly present and no masses AUSCULTATION: Yes normoactive bowel sounds PALPATION: Yes Soft to palpation and Yes No hepatosplenomegaly present RECTAL EXAM: deferred Extremity: COMMON NORMALS: no clubbing, cyanosis or edema and no pedal edema Data 04/05/22 04:20 04/05/22 04:20 A&P Assessment and plan (1) Seizure-like activity: (2) Syncopal episodes: (3) Hypokalemia: (4) Elevated troponin: (5) Stage 3a chronic kidney disease (CKD): Plan 52-year-old female with past medical history of rheumatoid arthritis, was brought in with chief complaint of 2 episodes of what she possibly describes as seizure-like activity, during which she also experienced involuntary urination , ringing sensation in the ears, and also describes as possible postictal confusion. She has a very remote history of 1 seizure episode about 20 years back, has not been on antiepileptic medications. Assessment: Possible seizure versus pseudoseizure History of rheumatoid arthritis Hypokalemia Likely CKD stage III: Hypercalcemia possibly secondary to volume depletion improving with IV hydration Plan: CT head without contrast no acute intracranial pathology 2D echo: Was done for family history of cardiomyopathy: Normal LV size and systolic function, LVEF 65% No gross valvular abnormality present. Carotid Doppler elevated X-ray chest: No acute findings COVID PCR negative Prolactin: 36 (though elevated but not very reliable) Intact PTH:39 25-OH vitamin D: 97 TSH : 0.57 Continue IV hydration Monitor intake output charting, avoid nephrotoxic Troponin trend: Unremarkable EKG unremarkable For now Lasix and his lisinopril has been kept on hold Monitor and replace potassium Patient will possibly need neurology follow-up as an outpatient.If needed EEG as outpatient. Continue prednisone and HCQ for h/o R/A CODE STATUS: Full code DVT prophylaxis: On heparin Attestations Medical Necessity Statement*: Patient is still in hospital for monitoring of seizure. Coding Level of Care Code Acute Advertising Sales Executive for Chg Fwd Exam Expanded Problem Focused Diagnoses Seizure-like activity R56.9 Syncopal episodes R55 Hypokalemia E87.6 Elevated troponin R77.8 Stage 3a chronic kidney disease (CKD) N18.31
--- NOTE | 2022-04-05 13:16 | PC.CHAP ---
Pastoral Care Encounter/Spiritual Assessment Type of Contact [] Declined building cleaner visit [] Patient/Family/Request visit [] Outpatient visit [] Follow-up visit [] Physician referral [] Code/Alert [x] Routine visit [] Staff referral [] Actively dying [] Patient sleeping [] Family support [] [] Out of room [] Palliative care [] [] Receiving care in room [] Pre-surgical visit [] Trauma [] Long length of stay [] ICU visit [] Other: Relational/Emotional Strength [x] Patient feels connected with others/family/visitors/staff [x] Distress [] Loneliness/isolation [] Abandonment Spirituality of Patient [x] Person of Alice [] Attends Church of their [place] [x] Believes in Prayer [] Reads Bible or Holiness materials [] There are Spiritual issues to be addressed Automatic Brine Mixer Operator Interventions [x] Prayer [x] Active listening [x] Non-anxious presence []x Spiritual/emotional support [] Crisis/trauma care [] Spiritual counseling [] Bereavement support [] Provided bereavement packet []x Provided Bible/devotional materials [] Provided toy/stuffed animal, coloring book to patient or family member [] Provided Communion [] Anointing/[place] [] Salvation [x Completed spiritual assessment [] Other: Impact on Illness or Injury [] Angry [] Fearful [] Anxious [] Often cries [] Exhaustion [] Unable to work [] Unable to attend religious [] Unable to walk/stand [] Unable to read [] Unable to drive [] Unable to eat/drink [] Unable to sleep [] Unable to be with family [] Patient intubated [] Other: Summary Time spent with patient 10 min
[2022-04-05] MEDS: sodium chlor 0.9% + KCl 40 mEq 40 MEQ/1,000 ML BAG 75 MEQ IV (14:36)
[2022-04-06] VITALS: BP 129/63; PULSE 60; RESP 17; TEMP 37.2; O2SAT 95
[2022-04-06 04:00] VITALS: BP 118/73; PULSE 57; RESP 20; TEMP 37; O2SAT 98
[2022-04-06] MEDS: sodium chlor 0.9% + KCl 40 mEq 40 MEQ/1,000 ML BAG 75 MEQ IV (05:14)
[2022-04-06 05:33] LABS: Basophils % 0.4 %; Eosinophils # 0.2 10^3/uL (0.0-0.8); Eosinophils % 2.9 %; Hematocrit 31.4 % (37.0-47.0); Hemoglobin 9.9 g/dL (11.5-15.3); Lymphocytes # 2.5 10^3/uL (0.8-4.8); Lymphocytes % 47.1 %; Mean Corpuscular HGB Conc 31.5 g/dL (30.0-36.0); Mean Corpuscular Hemoglobin 33.4 pg (28.0-34.0); Mean Corpuscular Volume 106.1 fl (81-99); Mean Platelet Volume 10.2 fL (7.4-10.4); Monocytes # 0.6 10^3/uL (0.2-0.9); Monocytes % 10.9 %; Neutrophils # 2.02 10^3/uL (1.8-7.7); Neutrophils % 38.5 %; Nucleated Red Blood Cells % 0 %; Platelet Count 201 10^3/cmm (130-400); Red Blood Count 2.96 10^6/uL (4.1-5.3); Red Cell Distribution Width 12.1 % (12.1-15.1); White Blood Count 5.2 10^3/uL (4.0-10.0)
[2022-04-06 05:52] LABS: Alanine Aminotransferase 22 U/L (0-33); Albumin Level 3.4 g/dL (3.5-5.2); Alkaline Phosphatase 49 U/L (35-105); Anion Gap 9.4 (5-19); Aspartate Amino Transferase 17 U/L (0-32); Blood Urea Nitrogen 22 mg/dL (6-20); Carbon Dioxide 26 mmol/L (22-29); Chloride 109 mmol/L (98-107); Globulin 2.1 g/dL (1.3-4.6); Glomerular Filtration Rate 52.4 mL/min (90-130); Glucose 92 mg/dL (65-115); Osmolality Calculated 293 mOsm/kg (285-295); Phosphorus 1.4 mg/dL (2.5-4.5); Potassium 4.4 mmol/L (3.5-5.1); Sodium 140 mmol/L (136-145); Total Bilirubin 0.2 mg/dL (0.15-1.2); Total Protein 5.5 g/dL (6.6-8.7)
[2022-04-06 08:00] VITALS: BP 113/73; PULSE 62; RESP 16; TEMP 36.4; O2SAT 98; O2SAT 99
[2022-04-06] MEDS: pantoprazole DR 40 mg Tablet PO (08:23)
[2022-04-06] MEDS: predniSONE 10 mg Tablet PO (08:23)
[2022-04-06] MEDS: potassium chloride ER 20 mEq Tablet 40 MEQ PO (08:23)
[2022-04-06] MEDS: hydroxychloroquine 200 mg Tablet PO (08:24)
[2022-04-06] MEDS: heparin 5,000 unit/mL INJ 1 mL 5000 UNIT SUBCUT (08:26)
[2022-04-06 10:38] VITALS: BP 113/73; PULSE 62; RESP 16; TEMP 36.4; O2SAT 99
--- NOTE | 2022-04-06 10:43 | PM.DCS ---
Discharge Providers Date of Admission: 04/05/22 17:53 Date of Discharge: April 06, 2022 Attending Provider at Admission: Fareed Martin MD Attending Provider at Discharge: Cole Peraza MD Primary Care Provider: Trupti Pierre DO Diagnoses at Discharge Discharge Diagnosis (1) Seizure-like activity: Status: Acute (2) Syncopal episodes: Status: Acute (3) Hypokalemia: Status: Acute (4) Elevated troponin: Status: Acute (5) Stage 3a chronic kidney disease (CKD): Status: Acute Reason for Visit Reason for Visit: weakness, dizzy Hospital Course Hospital Course 52-year-old female with past medical history of rheumatoid arthritis, was brought in with chief complaint of 2 episodes of what she possibly describes as seizure-like activity, she was admitted for monitoring of possible seizure versus pseudoseizure, she was found to be hypokalemic on admission, electrolyte abnormalities were corrected, she was kept on IV hydration, for possible possible CKD versus JERICHO on CKD, CT head without contrast failed to show any acute intracranial pathology, 2D echo Was done for family history of cardiomyopathy: Normal LV size and systolic function, LVEF 65%, No gross valvular abnormality present.X-ray chest: No acute findings COVID PCR negative,Prolactin: 36 (though elevated but not very reliable), Intact PTH:39, 25-OH vitamin D: 97 TSH : 0.57. Likely explanation for her unusual presentation could be hypokalemia triggered, with possible some element of dehydration, no seizure-like episode was experienced during hospital stay, patient has not been started on any antiepileptic medication, Lasix has been kept on hold on discharge, serum phosphorus was also found to be low: For which she has been started on oral phosphorus tablet, hypercalcemia on admission had resolved with IV hydration. Patient will follow with primary care physician in 1 week. In view of any repeat reoccurrence of any such similar episode, she will have to see her neurologist as outpatient for possible EEG and further work-up. Overall patient responded well to above medical management, she is being discharged home in stable condition Physical Exam Resp: COMMON NORMALS: clear to auscultation bilaterally AUSCULTATION: clear to auscultation bilaterally Cardio: COMMON NORMALS: regular rate, regular rhythm, S1 normal heart sound present, S2 normal heart sound present, No gallops present (Cardio), No murmurs present (Cardio), No rub (Cardio) and Peripheral pulses 2+ throughout RATE: regular rate RHYTHM: regular rhythm HEART SOUNDS: S1 normal heart sound present and S2 normal heart sound present PERIPHERAL PULSES: Peripheral pulses 2+ throughout GI: COMMON NORMALS: Normal to inspection, nondistended, normoactive bowel sounds present, Soft to palpation, non-tender, No hepatosplenomegaly present and no masses AUSCULTATION: Yes normoactive bowel sounds PALPATION: Yes Soft to palpation and Yes No hepatosplenomegaly present RECTAL EXAM: deferred Extremity: COMMON NORMALS: no clubbing, cyanosis or edema and no pedal edema Discharge Data Studies Completed and Pending Completed Studies During Hospitalization Category Date Time Status CT head wo con* [id number] Stat Cat Scan 04/04/22 17:41 Completed XR chest 1V portable [id number] Stat Exams 04/04/22 17:41 Completed CV. echo complete* [id number] Stat Ultrasound 04/04/22 20:13 Completed Radiology Impressions Chest X-Ray 04/04/22 17:41 IMPRESSION: No acute findings. Head CT 04/04/22 17:41 IMPRESSION: No acute intracranial abnormality. Laboratory Results WBC 5.2 10^3/uL (4.0-10.0) 04/06/22 05:00 RBC 2.96 10^6/uL (4.1-5.3) L 04/06/22 05:00 Hgb 9.9 g/dL (11.5-15.3) L 04/06/22 05:00 Hct 31.4 % (37.0-47.0) L 04/06/22 05:00 MCV 106.1 fl (81-99) H 04/06/22 05:00 MCH 33.4 pg (28.0-34.0) 04/06/22 05:00 MCHC 31.5 g/dL (30.0-36.0) 04/06/22 05:00 RDW 12.1 % (12.1-15.1) 04/06/22 05:00 Plt Count 201 10^3/cmm (130-400) 04/06/22 05:00 MPV 10.2 fL (7.4-10.4) 04/06/22 05:00 Neut % (Auto) 38.5 % 04/06/22 05:00 Lymph % (Auto) 47.1 % 04/06/22 05:00 [place] % (Auto) 10.9 % 04/06/22 05:00 Eos % (Auto) 2.9 % 04/06/22 05:00 Baso % (Auto) 0.4 % 04/06/22 05:00 Neut # (Auto) 2.02 10^3/uL (1.8-7.7) 04/06/22 05:00 Lymph # (Auto) 2.5 10^3/uL (0.8-4.8) 04/06/22 05:00 [place] # (Auto) 0.6 10^3/uL (0.2-0.9) 04/06/22 05:00 Eos # (Auto) 0.2 10^3/uL (0.0-0.8) 04/06/22 05:00 Baso # (Auto) 0.0 10^3/uL (0.0-0.1) 04/06/22 05:00 Nucleated RBC % (auto) 0 % 04/06/22 05:00 Nucleated RBCs # 0.0 /100WBC 04/06/22 05:00 Sodium 140 mmol/L (136-145) 04/06/22 05:00 Potassium 4.4 mmol/L (3.5-5.1) 04/06/22 05:00 Chloride 109 mmol/L (98-107) H 04/06/22 05:00 Carbon Dioxide 26 mmol/L (22-29) 04/06/22 05:00 Anion Gap 9.4 (5-19) 04/06/22 05:00 BUN 22 mg/dL (6-20) H 04/06/22 05:00 Creatinine 1.1 mg/dL (0.5-0.9) H 04/06/22 05:00 GFR Calculation 52.4 mL/min (90-130) L 04/06/22 05:00 Glucose 92 mg/dL (65-115) 04/06/22 05:00 Calculated Osmolality 293 mOsm/kg (285-295) 04/06/22 05:00 Calcium 9.0 mg/dL (8.5-10.5) 04/06/22 05:00 Phosphorus 1.4 mg/dL (2.5-4.5) L 04/06/22 05:00 Magnesium 2.0 mg/dL (1.7-2.3) 04/05/22 04:20 Total Bilirubin 0.2 mg/dL (0.15-1.2) 04/06/22 05:00 AST 17 U/L (0-32) 04/06/22 05:00 ALT 22 U/L (0-33) 04/06/22 05:00 Alkaline Phosphatase 49 U/L (35-105) 04/06/22 05:00 Troponin T Baseline 24 ng/L (0-10) H 04/04/22 16:44 Troponin T 120 Minute 29.91 ng/L (0-10) H 04/04/22 19:08 Delta Troponin T 5.91 ABS# (0-10) 04/04/22 19:08 Troponin T Hi Sens 6Hr 30.86 ng/L (0-10) H 04/04/22 23:15 Troponin T Hi Sens 6Hr Delta 6.86 ng/L (0-12) 04/04/22 23:15 C-Reactive Protein 3.0 mg/L (0.0-4.9) 04/05/22 04:20 Total Protein 5.5 g/dL (6.6-8.7) L 04/06/22 05:00 Albumin 3.4 g/dL (3.5-5.2) L 04/06/22 05:00 Globulin 2.1 g/dL (1.3-4.6) 04/06/22 05:00 25-OH Vitamin D Total 97 ng/mL (30-100) 04/04/22 23:15 TSH 0.57 uIU/mL (0.27-4.20) 04/04/22 15:25 Prolactin 36.41 ng/mL (4.8-23.3) H 04/04/22 19:08 PTH Intact 39.7 pg/mL (15-65) 04/04/22 15:25 Calcium (PTH Intact) 11.0 mg/dL (8.5-10.5) H 04/04/22 15:25 Urine Color Yellow (Yellow) 04/04/22 19:05 Urine Appearance Clear (CLEAR) 04/04/22 19:05 Urine pH 8 (5-7) H 04/04/22 19:05 Ur Specific [place] 1.010 (1.005-1.030) 04/04/22 19:05 Urine Protein Neg (Negative) 04/04/22 19:05 Urine Glucose (UA) Norm (Normal) 04/04/22 19:05 Urine Ketones Negative (Negative) 04/04/22 19:05 Urine Blood Neg (Negative) 04/04/22 19:05 Urine Nitrate Negative (Negative) 04/04/22 19:05 Urine Bilirubin Neg (Negative) 04/04/22 19:05 Prot Sulfosalicylic Acd Negative (Negative) 04/04/22 19:05 Urine Urobilinogen Norm mg/dL (Negative) 04/04/22 19:05 Ur Leukocyte Esterase Negative (Negative) 04/04/22 19:05 Ur Random Sodium 86 mmol/L 04/04/22 19:05 Ur Random Potassium 60 mmol/L 04/04/22 19:05 Ur Random Chloride 15 mmol/L 04/04/22 19:05 Ur Random Calcium 4.8 mg/dL 04/04/22 19:05 Urine Opiates Screen Negative ng/mL (Negative) 04/04/22 19:05 Ur Barbiturates Screen Negative ng/mL (Negative) 04/04/22 19:05 Ur Phencyclidine Scrn Negative ng/mL (Negative) 04/04/22 19:05 Ur Amphetamines Screen Negative ng/mL (Negative) 04/04/22 19:05 U Benzodiazepines Scrn Positive ng/mL (Negative) H 04/04/22 19:05 Urine Cocaine Screen Negative ng/mL (Negative) 04/04/22 19:05 U Marijuana (THC) Screen Negative ng/mL (Negative) 04/04/22 19:05 Coronavirus 229E (PCR) Not detected (NOT DETECT) 04/04/22 17:29 SARS-CoV-2 (PCR) Not detected (NOT DETECT) 04/04/22 17:29 Vitals Last Vital Signs Temp 97.6 F 04/06/22 10:38 Pulse 62 04/06/22 10:38 Resp 16 04/06/22 10:38 BP 113/73 04/06/22 10:38 Pulse Ox 99 04/06/22 10:38 O2 Del Method 04/06/22 08:00 Discharge Plan Discharge Patient Disposition: Home Condition: Stable Prescriptions: New Phospha 250 Neutral 250 mg tablet 1 tab PO BID Qty: 20 0RF Continued acetaminophen [Tylenol Arthritis Pain] 650 mg tablet extended release 650 mg PO Q8H omeprazole 20 mg capsule,delayed release(DR/EC) 20 mg PO DAILY Qty: 30 3RF fluoxetine 40 mg capsule 40 mg PO DAILY Qty: 90 1RF milk thistle 150 mg capsule 150 mg PO DAILY Rx Instructions: give with meal/snack folic acid 400 mcg tablet 0.4 mg PO DAILY carboxymethylcellulose sodium [Refresh Tears] 0.5 % drops 2 drp ophthalmic (eye) BID PRN (Reason: dry eye(s)) Qty: 15 11RF Rx Instructions: Use in both eyes hydroxychloroquine 200 mg tablet 200 mg PO BID Qty: 60 3RF terbinafine HCl 250 mg tablet 250 mg PO DAILY 60 Days Qty: 60 0RF bisacodyl 5 mg Tablet 5 mg PO DAILY PRN (Reason: Constipation) biotin 5,000 mcg Tablet, Sublingual 5,000 mcg SUBLINGUAL DAILY prednisone 5 mg tablet 5 mg PO DAILY PRN (Reason: Inflammation) potassium chloride 10 mEq tablet extended release 10 meq PO DAILY Held furosemide 20 mg tablet See Rx Instructions .ROUTE .COMPLEX Qty: 60 1RF Hold Instructions: Resume on 04/16/22. Dose Instruction: TAKE 1 TO 2 TABLETS BY MOUTH EVERY MORNING Rx Instructions: TAKE 1 TO 2 TABLETS BY MOUTH EVERY MORNING Discharge Orders: Discharge Order (Routine); Ordered 04/06/22 Ordered By: Cole Peraza Referrals: Trupti Pierre DO [Primary Care Provider] - 04/11/22 2:45 pm Patient Instructions: Phosphate Supplement (By mouth), Hypokalemia (DC), Near Syncope (DC), High Troponin Levels (GEN), Opioid Safety Discharge Attestations Time Spent in Discharge Care*: less than 30 min Quality Metrics Clinical Quality Measures [ No reported AMI, CVA or VTE this stay] Coding Level of Care Code Acute Chg FW DC note Diagnoses Seizure-like activity R56.9 Syncopal episodes R55 Hypokalemia E87.6 Elevated troponin R77.8 Stage 3a chronic kidney disease (CKD) N18.31
== END 2022-04-06 11:10 | disposition home or self-care (01) | DRG 641 ==
LOC: ER 20:04 → MEDSURG 20:35
PROVIDERS: Admitting Provider Internal Medicine; Emergency Provider Emergency Medicine; PCP Family Medicine; Visit Provider Internal Medicine
DX: E87.6 Hypokalemia (principal); N17.9 Acute kidney failure, unspecified; I42.9 Cardiomyopathy, unspecified; M06.9 Rheumatoid arthritis, unspecified; F17.210 Nicotine dependence, cigarettes, uncomplicated; N18.31 Chronic kidney disease, stage 3a; F41.0 Panic disorder [episodic paroxysmal anxiety]; R06.4 Hyperventilation; E86.0 Dehydration; E83.39 Other disorders of phosphorus metabolism; Z79.52 Long term (current) use of systemic steroids
CPT/HCPCS: 36415; 70450; 71045; 80048; 80053; 80306; 81003; 82306; 82310; 82340; 82436; 83735; 83970; 84100; 84133; 84146; 84300; 84443; 84484; 85025; 86140; 87635; 93005; 93306; 96365; 96366; 96372; 99285; G0378; J1644; J3480; J7030; J7512

== ENCOUNTER → 2022-04-18 15:55 | Outpatient (BNVA) | payer MEDICAID, SELFPAY | PROVIDERS: PCP Family Medicine; Visit Provider Family Medicine | DX: N18.31 Chronic kidney disease, stage 3a (principal) | CPT/HCPCS: 80053 ==

== ENCOUNTER → 2022-06-22 14:16 | Outpatient (BNVA) | payer MEDICAID, SELFPAY | PROVIDERS: PCP Family Medicine; Visit Provider Internal Medicine | DX: M06.9 Rheumatoid arthritis, unspecified (principal); M53.3 Sacrococcygeal disorders, not elsewhere classified; R53.83 Other fatigue | CPT/HCPCS: 36415; 72100; 80053; 81003; 82607; 82652; 82728; 83540; 83735; 84443; 85025; 85651; 86140 ==

== ENCOUNTER → 2022-07-18 12:34 | Outpatient (BNVA) | payer MEDICAID, SELFPAY | PROVIDERS: PCP Family Medicine; Visit Provider Family Medicine | DX: F43.22 Adjustment disorder with anxiety (principal) | CPT/HCPCS: 82533 ==

== ENCOUNTER 2022-08-05 07:46 | Outpatient (CLI) | payer MEDICAID, SELFPAY ==
--- NOTE | 2022-08-05 08:00 | CT_ITS ---
WS: [id number] LDCT LUNG CANCER SCREENING HISTORY: screening TECHNIQUE: Axial imaging performed from the apices to 1 cm below the costophrenic angles. Coronal and sagittal reformats are submitted with axial MIP series. All CT scans at [facility] use at least one of these dose optimization techniques: automated exposure control; mA and/or kV adjustment per patient size (includes targeted exams where dose is matched to clinical indication); or iterativ e reconstruction. DLP: 87.60 mGy.cm DIvol: Mean CTDIvol: 1.60 (mGy) COMPARISON: None available. Diagnostic quality: Satisfactory Lungs: No abnormality. No endobronchial lesion. Heart: Normal size heart with no pericardial effusion.. Other findings: Mild atherosclerosis aorta. No mediastinal or hilar adenopathy. Small hiatal hernia. No adenopathy. Mild LEFT adrenal hyperplasia. CT/CT lung screening [id number] IMPRESSION: LUNG-RADS: 1-Negative FOLLOW UP: 12 Month: Continue annual screening with LDCT OTHER FINDINGS (S MODIFIER): None.
== END 2022-08-05 07:47 | disposition home or self-care (01) ==
LOC: RAD 07:48
PROVIDERS: PCP Family Medicine; Visit Provider Family Medicine
DX: Z12.2 Encounter for screening for malignant neoplasm of respiratory organs (principal); Z87.891 Personal history of nicotine dependence
CPT/HCPCS: 71271; 82533

== ENCOUNTER 2022-08-16 12:56 | Outpatient (CLI) | payer MEDICAID, SELFPAY ==
--- NOTE | 2022-08-16 13:00 | MR_ITS ---
WS: [id number] MRI LUMBAR SPINE NONCONTRAST HISTORY: M54.9 - Dorsalgia, unspecified COMPARISON: None available. TECHNIQUE: Sagittal and axial multisequence imaging is submitted. Increase in cervical lordosis and thoracic kyphosis. Facet joint arthritis and disc bulging causing m ild central cervical stenosis at C4-5 and C5-6. Disc and osteophyte disease in the mid thoracic spine . The largest central disc osteophyte at T9-10 abutting the thoracic cord. Additional smaller disc an d osteophyte disease at T7-8 and T10-11. No high-grade cord compression. Shallow central disc protrus ion at T12-L1. Normal lumbar alignment with no compression fractures or marrow edema. Mild lumbar curvature. Disc spaces and vertebral body heights are well-preserved. Conus terminates normally at L1. L1-L2: Mild annular disc bulge with a shallow LEFT foraminal disc protrusion. Mild foraminal stenosis . L2-L3: Mild disc bulging with ligamentum flavum and facet arthritis. No significant stenosis. L3-L4: Mild annular disc bulge with mild ligamentum flavum and facet arthritis. No high-grade stenosi s. L4-L5: Mild annular disc bulging with moderate ligamentum flavum and facet arthritis. There is very m ild disc encroachment upon the subarticular recesses. Small amount of fluid in the facet joints. L5-S1: Central disc protrusion extends just slightly below the disc level. There is very minimal cont act on the RIGHT S1 nerve root. No displacement. Mild central and subarticular recess stenosis. MR/MR lumbar spine wo con* [id number] IMPRESSION: 1. Mild degenerative facet disease throughout the lumbar spine. No acute fract ures. 2. Shallow LEFT foraminal disc protrusion at L1-2 with mild foraminal stenosis . 3. Mild disc encroachment upon the subarticular recesses at L4-5. 4. Moderate central disc protrusion at L5-S1 extends just slightly below the d isc level. Very minimal contact on the RIGHT S1 nerve root. Mild central and bi lateral subarticular recess stenosis at L5-S1. 5. Disc osteophyte disease in the thoracic spine. The largest disc osteophyte is centrally at T9-T10 abutting the thoracic cord. MRI thoracic cord may be of benefit to further define and characterize disc disease.
== END 2022-08-16 12:57 | disposition home or self-care (01) ==
LOC: RAD 13:00
PROVIDERS: PCP Family Medicine; Visit Provider Anesthesiology Pain Medicine
DX: M48.061 Spinal stenosis, lumbar region without neurogenic claudication (principal); M54.9 Dorsalgia, unspecified; M25.78 Osteophyte, vertebrae
CPT/HCPCS: 72148

== ENCOUNTER → 2022-09-19 13:27 | Outpatient (BNVA) | payer MEDICAID, SELFPAY | PROVIDERS: PCP Family Medicine; Visit Provider Family Medicine | DX: E87.6 Hypokalemia (principal) | CPT/HCPCS: 80048 ==

== ENCOUNTER 2022-11-01 13:17 | Outpatient (CLI) | payer MEDICAID, SELFPAY ==
--- NOTE | 2022-11-01 13:23 | MM_ITS ---
WS: [id number] BILATERAL 3D TOMOSYNTHESIS DIGITAL SCREENING MAMMOGRAPHY WITH CAD CLINICAL INFORMATION: SCREENING HISTORY: Screening mammogram. No current complaints. COMPARISON: October 29, 2021 TECHNIQUE: Bilateral CC and MLO views. FINDINGS: The breasts are composed of heterogeneous fibroglandular density tissue, which can limit the detectio n of small underlying mass lesions. No suspicious mass, asymmetry, calcifications, or architectural d istortion. No evidence of malignancy. A few incidental punctate calcifications. Stable clustered calc ifications LEFT breast. MM/[place] [id number] IMPRESSION: BI-RADS: 2-Benign FOLLOW UP: 1 Year Follow-up Recommend return to annual screening mammography.
== END 2022-11-01 13:18 | disposition home or self-care (01) ==
PROVIDERS: PCP Family Medicine; Visit Provider Family Medicine
DX: Z12.31 Encounter for screening mammogram for malignant neoplasm of breast (principal)
CPT/HCPCS: 77063; 77067

== ENCOUNTER → 2023-01-23 16:38 | Outpatient (BNVA) | payer MEDICAID, SELFPAY | PROVIDERS: PCP Family Medicine; Visit Provider Family Medicine | DX: L65.9 Nonscarring hair loss, unspecified (principal) | CPT/HCPCS: 84443 ==

== ENCOUNTER → 2023-04-19 10:54 | Outpatient (BNVA) | payer MEDICAID, SELFPAY | PROVIDERS: PCP Family Medicine; Visit Provider Internal Medicine | DX: N18.31 Chronic kidney disease, stage 3a (principal); M06.9 Rheumatoid arthritis, unspecified; M51.16 Intervertebral disc disorders with radiculopathy, lumbar region | CPT/HCPCS: 36415; 80053; 85025; 85651; 86140 ==

== ENCOUNTER → 2023-05-30 13:34 | Outpatient (BNVA) | payer MEDICAID, SELFPAY | PROVIDERS: PCP Family Medicine; Visit Provider Family Medicine | DX: N18.31 Chronic kidney disease, stage 3a (principal) | CPT/HCPCS: 80048 ==